=== PATIENT | male | born 1975 | race Caucasian/White ===

== ENCOUNTER 2017-10-03 13:07 | Emergency (ER) | payer OTHER ==
[2017-10-03 13:16] VITALS: RESP 16; TEMP 98.1
--- NOTE | 2017-10-03 13:27 | CPEKG ---
Heart Rate: 76 RR Interval: 789 P-R Interval: 192 QRSD Interval: 90 QT Interval: 408 QTC Interval: 459 P Dougherty: 71 QRS Dougherty: 52 T Wave Dougherty: 37 EKG Severity - NORMAL ECG - EKG Impression: SINUS RHYTHM Electronically Signed By: Darlene Nava 03-Oct-2017 20:06:22
[2017-10-03 14:27] LABS: PLATELET COUNT 289 10^3/uL (150-400)
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
[2017-10-03 15:23] VITALS: BP 114/73; PULSE 72; O2SAT 94
== END 2017-10-03 15:22 | disposition home or self-care (01) ==
DX: R07.89 Other chest pain (principal); J45.909 Unspecified asthma, uncomplicated; Z87.891 Personal history of nicotine dependence